=== PATIENT | female | born 1935 | race Caucasian/White ===

== ENCOUNTER 2016-10-28 09:53 | Emergency (ER) | payer OTHER ==
[~2016-10-28] VITALS: Ht 160 cm; Wt 62.1 kg
[~2016-10-28 09:53] MED LIST: BACTRIM,SEPT1 TABLET PO; COLACE100 MG PO; DOCUSATE SODIU100 MG PO; HYDROCODON-ACE1 EAC7 PO; LEVEMIR FL100 UNIT/1 SC; LINEZOLID600 MG PO; LO-DOSE ASPIRIN81 M2 PO; LOSARTAN POTASS25 MG PO; LOVENOX30 MG/0.3 SC; METFORMIN HCL500 MG PO; MYLICON,MYLANTA80 MG PO; NOVOLOG PE100 UNITS/ SC; THERAGRAN1 TABLET PO; TYLENOL REGULA325 MG PO; VANCOMYCIN HCL1 GM IV; WELCHOL625 MG PO
[2016-10-28 11:58] VITALS: BP 150/56
== END 2016-10-28 12:14 | disposition home or self-care (01) ==
LOC: EME 09:53
DX: S00.03XA Contusion of scalp, initial encounter (principal); S30.0XXA Contusion of lower back and pelvis, initial encounter; S60.012A Contusion of left thumb without damage to nail, initial encounter; W01.0XXA Fall on same level from slipping, tripping and stumbling without subsequent striking against object, initial encounter; M16.0 Bilateral primary osteoarthritis of hip; M51.36 Other intervertebral disc degeneration, lumbar region; M79.605 Pain in left leg; I10 Essential (primary) hypertension; Z95.5 Presence of coronary angioplasty implant and graft; Z79.82 Long term (current) use of aspirin; Z87.891 Personal history of nicotine dependence
CPT/HCPCS: 70450; 72100; 73140; 73502; 99281; 99283

== ENCOUNTER 2017-04-20 04:34 | Inpatient (IN) | payer OTHER ==
[2017-04-20] VITALS (7 sets, daily range): BP systolic 101–148; BP diastolic 56–87
[~2017-04-20] VITALS: Ht 154.9 cm; Wt 68.3 kg
[2017-04-20 06:05] LABS: HEMATOCRIT 23.2 % (36.0-46.0); HEMOGLOBIN 7.6 G/DL (11.9-15.5); MCH 28.7 PG (29.0-34.0); MCHC 32.8 G/DL (30.0-36.0); MCV 87.5 FL (83-99); PLATELET COUNT 130 K/uL (156-360); RBC DIS.WIDTH-CV 15.6 % (11.8-14.6); RBC DIS.WIDTH-SD 49.2 % (39-53); RED BLOOD COUNT 2.65 M/uL (3.80-5.20); WHITE BLOOD COUNT 4.9 K/uL (4.1-10.2)
[2017-04-20 06:26] LABS: CHLORIDE 106 MEQ/L (99-109); POTASSIUM 4.4 MEQ/L (3.7-5.4); SODIUM 134 MEQ/L (136-147)
[2017-04-20 06:45] LABS: CREATININE 1.1 MG/DL (0.6-1.3); GFR ESTIMATE (CALCULATED) 51 mL/min/; GLUCOSE 142 mg/dL (70-99); UREA NITROGEN (BUN) 9 mg/dL (9-23)
[2017-04-20 06:51] LABS: ALBUMIN 2.6 G/DL (3.2-4.8); DIRECT BILIRUBIN 0.1 mg/dL (0.0-0.3); TOTAL BILIRUBIN 0.7 MG/DL (0.0-1.0)
[2017-04-20 06:57] LABS: ALKALINE PHOSPHATASE 64 IU/L (3-129); ALT (GPT) 12 IU/L (3-49); AST (GOT) 32 IU/L (2-34); LIPASE 55 U/L (1.0-51.0); TOTAL PROTEIN 5.6 G/DL (6.4-8.3)
[2017-04-20] MEDS ORDERED: METFORMIN HCL500 M1 PO (08:55)
[2017-04-20] MEDS ORDERED: ADVIL PM1 TABLET PO (08:55)
[2017-04-20] MEDS ORDERED: ACETAMINOPHEN325 M1 PO (08:56)
[2017-04-20] MEDS ORDERED: FLONASE ALLERG9.9 ML BOTH NARES (08:58)
[2017-04-20 09:33] LABS: INTER. NORMALIZED RATIO 1.1
[2017-04-20 11:27] LABS: APPEARANCE CLEAR ((CLEAR)); BILIRUBIN NEGATIVE; BLOOD NEGATIVE; COLOR YELLOW ((YELLOW)); GLUCOSE (STRIP) NEGATIVE; KETONES NEGATIVE; LEUKOCYTES SMALL; NITRITE NEGATIVE; PROTEIN (STRIP) NEGATIVE; SPECIFIC GRAVITY 1.014 (1.000-1.030); UROBILINOGEN 0.2 MG/DL (0.2-1.0)
[2017-04-20 11:35] LABS: BACTERIA NONE SEEN /HPF; EPITHELIAL CELLS RARE /HPF; HYALINE CASTS 0-5 /LPF; MUCUS TRACE /LPF; UCUL ADDED? YES
[2017-04-20 11:40] LABS: ABSOLUTE RETICULOCYTE CT. 0.1 M/uL (0.02-0.08); IMM.RETIC FRACTION 17.5 % (3-19); RETIC HGB EQUIVALENT 29.9 (28-36); RETICULOCYTE COUNT 2.2 % (0.5-1.8)
[2017-04-20 11:59] LABS: TROP-I INTERPRETATION NEGATIVE; TROPONIN-I < 0.01 ng/mL (0.0-0.30)
[2017-04-20 12:09] LABS: IRON 21 MCG/DL (35-150)
[2017-04-20 12:20] LABS: FERRITIN 12 NG/ML (10-291)
[2017-04-20 15:53] LABS: HEMATOCRIT 27.6 % (36.0-46.0); HEMOGLOBIN 8.8 G/DL (11.9-15.5)
[2017-04-21] VITALS (7 sets, daily range): BP systolic 88–155; BP diastolic 45–76
[2017-04-21 05:57] LABS: HEMATOCRIT 26.8 % (36.0-46.0); HEMOGLOBIN 8.6 G/DL (11.9-15.5); MCH 28.8 PG (29.0-34.0); MCHC 32.1 G/DL (30.0-36.0); MCV 89.6 FL (83-99); PLATELET COUNT 133 K/uL (156-360); RBC DIS.WIDTH-CV 15.8 % (11.8-14.6); RBC DIS.WIDTH-SD 51.3 % (39-53); RED BLOOD COUNT 2.99 M/uL (3.80-5.20); WHITE BLOOD COUNT 7.1 K/uL (4.1-10.2)
[2017-04-21 08:27] LABS: IMMUNOGLOBULIN G 978 MG/DL (650-1600); IMMUNOGLOBULIN M 456 MG/DL (50-300)
[2017-04-21 09:29] LABS: A/G RATIO 0.9 (1.1-1.8); ALBUMIN 2.8 G/DL (3.4-5.0); CHLORIDE 103 MEQ/L (99-109); CREATININE 1.3 MG/DL (0.6-1.3); GFR ESTIMATE (CALCULATED) 42 mL/min/; GLUCOSE 166 mg/dL (70-99); IRON 112 MCG/DL (35-150); LACTATE DEHYDROGENASE 186 IU/L (20-246); POTASSIUM 4.6 MEQ/L (3.7-5.4); SODIUM 133 MEQ/L (136-147); THYROTROPIN (TSH) 5.5 MIU/L (0.4-5.5); TOTAL PROTEIN 5.8 G/DL (6.4-8.2); TRANSFERRIN (TIBC) 201.1 mg/dL (215-380); TRANSFERRIN SATUR. 56 % (20-55); UREA NITROGEN (BUN) 11 mg/dL (9-23)
[2017-04-21 16:57] LABS: HEMATOCRIT 27.7 % (36.0-46.0); HEMOGLOBIN 8.8 G/DL (11.9-15.5); MCV 90.2 FL (83-99)
[2017-04-22] VITALS (9 sets, daily range): BP systolic 104–136; BP diastolic 50–76
[2017-04-22 05:53] LABS: HEMATOCRIT 22.9 % (36.0-46.0); HEMOGLOBIN 7.4 G/DL (11.9-15.5); MCH 29.1 PG (29.0-34.0); MCHC 32.3 G/DL (30.0-36.0); MCV 90.2 FL (83-99); PLATELET COUNT 125 K/uL (156-360); RBC DIS.WIDTH-CV 15.9 % (11.8-14.6); RBC DIS.WIDTH-SD 51.6 % (39-53); RED BLOOD COUNT 2.54 M/uL (3.80-5.20)
[2017-04-22 06:19] LABS: CHLORIDE 106 MEQ/L (99-109); CREATININE 1.4 MG/DL (0.6-1.3); GFR ESTIMATE (CALCULATED) 38 mL/min/; GLUCOSE 149 mg/dL (70-99); POTASSIUM 4.4 MEQ/L (3.7-5.4); SODIUM 132 MEQ/L (136-147); UREA NITROGEN (BUN) 16 mg/dL (9-23)
[2017-04-22 14:48] LABS: ALBUMIN 2.79 G/DL (3.6-4.9); ALPHA-1 GLOBULIN 0.27 G/DL (0.15-0.40); BETA-GLOBULIN 1.17 G/DL (0.65-1.15); GAMMA-GLOBULIN 1.07 G/DL (0.60-1.35)
[2017-04-22 15:11] LABS: HEMATOCRIT 28.8 % (36.0-46.0); MCV 88.6 FL (83-99)
[2017-04-23 00:14] VITALS: BP 157/60
[2017-04-23 02:41] VITALS: BP 138/60
[2017-04-23 05:23] LABS: HEMATOCRIT 27.4 % (36.0-46.0); HEMOGLOBIN 8.7 G/DL (11.9-15.5); MCH 28.2 PG (29.0-34.0); MCHC 31.8 G/DL (30.0-36.0); MCV 88.7 FL (83-99); PLATELET COUNT 141 K/uL (156-360); RBC DIS.WIDTH-SD 54.6 % (39-53); WHITE BLOOD COUNT 5.9 K/uL (4.1-10.2)
[2017-04-23 05:24] LABS: RED BLOOD COUNT 3.09 M/uL (3.80-5.20)
[2017-04-23 05:45] LABS: CHLORIDE 108 MEQ/L (99-109); CREATININE 1.1 MG/DL (0.6-1.3); GFR ESTIMATE (CALCULATED) 51 mL/min/; GLUCOSE 145 mg/dL (70-99); POTASSIUM 3.9 MEQ/L (3.7-5.4); SODIUM 135 MEQ/L (136-147); UREA NITROGEN (BUN) 16 mg/dL (9-23)
[2017-04-23 07:50] VITALS: BP 134/60
[2017-04-23 16:20] VITALS: BP 134/64
[2017-04-23 19:54] VITALS: BP 141/63
[2017-04-24 00:16] VITALS: BP 131/61
[2017-04-24 03:57] VITALS: BP 133/56
[2017-04-24 08:03] VITALS: BP 133/60
[2017-04-24 11:21] VITALS: BP 139/63
[2017-04-24] MEDS ORDERED: PROTONIX40 MG PO (12:36)
[2017-04-24] MEDS ORDERED: ENDOCET 5-3251 EACH PO (12:43)
== END 2017-04-24 16:50 | DRG 563 ==
LOC: EME → EDBD 04:34 → EME 04:34 → 3EAST 09:06 → EDOF 09:06 → ENRESERV 09:07 → 3EAST 10:09
PROVIDERS: Emergency Medicine; Family Medicine; Internal Medicine; Internal Medicine Gastroenterology; Physician Assistant
PROC: 30233N1 Transfusion of Nonautologous Red Blood Cells into Peripheral Vein, Percutaneous Approach (ICD-10-PCS; principal; 2017-04-20)
PROC: 0DB68ZX Excision of Stomach, Via Natural or Artificial Opening Endoscopic, Diagnostic (ICD-10-PCS; 2017-04-22)
DX: S42.212A Unspecified displaced fracture of surgical neck of left humerus, initial encounter for closed fracture (principal); D62 Acute posthemorrhagic anemia; W06.XXXA Fall from bed, initial encounter; D47.2 Monoclonal gammopathy; K25.3 Acute gastric ulcer without hemorrhage or perforation; Y92.003 Bedroom of unspecified non-institutional (private) residence as the place of occurrence of the external cause; I25.10 Atherosclerotic heart disease of native coronary artery without angina pectoris; D69.6 Thrombocytopenia, unspecified; E78.5 Hyperlipidemia, unspecified; I10 Essential (primary) hypertension; I25.2 Old myocardial infarction; E11.9 Type 2 diabetes mellitus without complications; K29.80 Duodenitis without bleeding; K26.9 Duodenal ulcer, unspecified as acute or chronic, without hemorrhage or perforation; Z95.5 Presence of coronary angioplasty implant and graft; Z79.82 Long term (current) use of aspirin; Z79.84 Long term (current) use of oral hypoglycemic drugs; Z79.899 Other long term (current) drug therapy; Z87.891 Personal history of nicotine dependence; Z66 Do not resuscitate
CPT/HCPCS: 71045; 73030; 73200; 80048; 80076; 81003; 82525 90; 82607; 82728; 82746; 82784; 82948; 83540; 83615; 83615 90; 83625 90; 83690; 83880; 83883 90; 84165; 84443; 84466; 84484; 84630 90; 85014; 85018; 85027; 85046; 85610; 85730; 86334; 86850; 86900; 86901; 86920; 87086; 88305; 88342 TC; 93005; 94799; 99281; 99285; C9113; J1815; J2270; J2405; J3010; J7030; P9016

== ENCOUNTER 2017-04-26 15:26 | Inpatient (IN) | payer OTHER ==
[~2017-04-26] VITALS: Ht 154.9 cm; Wt 69.5 kg
[~2017-04-26 15:26] MED LIST changes: +ACETAMINOPHEN325 M1 PO; +ADVIL PM1 TABLET PO; +ENDOCET 5-3251 EACH PO; +FLONASE ALLERG9.9 ML BOTH NARES; +METFORMIN HCL500 M1 PO; +PROTONIX40 MG PO
[2017-04-26 17:46] LABS: BASOPHIL (%) 0.9 % (0-1); BASOPHIL COUNT 0.1 K/uL (0-0.1); EOSINOPHIL (%) 1.6 % (0-5); EOSINOPHIL COUNT 0.1 K/uL (0-0.3); HEMATOCRIT 31.8 % (36.0-46.0); HEMOGLOBIN 10.2 G/DL (11.9-15.5); IMMATURE GRANULOCYTE (%) 0.4 % (0.0-0.7); LYMPHOCYTE (%) 20.4 % (15-42); LYMPHOCYTE COUNT 1.4 K/uL (1.0-2.8); MCH 28.2 PG (29.0-34.0); MCHC 32.1 G/DL (30.0-36.0); MCV 87.8 FL (83-99); MONOCYTE (%) 7.2 % (3-12); MONOCYTE COUNT 0.5 K/uL (0-0.8); NEUTROPHIL (%) 69.5 % (45-76); NEUTROPHIL COUNT 4.7 K/uL (1.8-6.4); PLATELET COUNT 202 K/uL (156-360); RBC DIS.WIDTH-CV 17.2 % (11.8-14.6); RBC DIS.WIDTH-SD 54.2 % (39-53); RED BLOOD COUNT 3.62 M/uL (3.80-5.20); WHITE BLOOD COUNT 6.8 K/uL (4.1-10.2)
[2017-04-26 17:54] LABS: ALBUMIN 2.6 g/dL (3.2-4.8)
[2017-04-26 17:55] LABS: CHLORIDE 105 mEq/L (99-109); POTASSIUM 4.1 mEq/L (3.7-5.4); SODIUM 132 mEq/L (136-147)
[2017-04-26 17:57] LABS: GLUCOSE 147 mg/dL (70-99); TOTAL PROTEIN 5.6 g/dL (6.4-8.3)
[2017-04-26 17:59] LABS: TOTAL BILIRUBIN 1.3 mg/dL (0.0-1.0)
[2017-04-26 18:00] LABS: ALKALINE PHOSPHATASE 71 IU/L (3-129)
[2017-04-26 18:01] LABS: CREATININE 1.1 mg/dL (0.6-1.3); GFR ESTIMATE (CALCULATED) 51 mL/min/
[2017-04-26 18:02] LABS: AST (GOT) 26 IU/L (2-34); UREA NITROGEN (BUN) 19 mg/dL (9-23)
[2017-04-26 18:03] LABS: ALT (GPT) 11 IU/L (3-49)
[2017-04-26 18:04] LABS: LIPASE 55 U/L (1.0-51.0)
[2017-04-26] MEDS ORDERED: THERAGRAN-M PR1 EAC1 PO (22:33)
[2017-04-26] MEDS ORDERED: OMEPRAZOLE40 M1 PO (22:36)
[2017-04-26] MEDS ORDERED: VALTREX50 MG/ML PO (22:42)
[2017-04-26] MEDS ORDERED: BISACODYL SUPP10 MG PR (22:44)
[2017-04-26] MEDS ORDERED: FLUTICASONE PRO16 GM BOTH NARES (22:45)
[2017-04-26] MEDS ORDERED: MILK OF MAGN PO (22:46)
[2017-04-26] MEDS ORDERED: MIRALAX17 GM PO (22:48)
[2017-04-26 23:51] LABS: APPEARANCE CLEAR ((CLEAR)); BILIRUBIN NEGATIVE; BLOOD NEGATIVE; COLOR YELLOW ((YELLOW)); GLUCOSE (STRIP) NEGATIVE; KETONES 5; LEUKOCYTES NEGATIVE; NITRITE NEGATIVE; PROTEIN (STRIP) NEGATIVE; UCUL ADDED? NO; UROBILINOGEN 0.2 MG/DL (0.2-1.0)
[2017-04-27 04:10] VITALS: BP 134/60
[2017-04-27 07:34] LABS: BASOPHIL (%) 0.6 % (0-1); BASOPHIL COUNT 0.1 K/uL (0-0.1); EOSINOPHIL (%) 1.8 % (0-5); EOSINOPHIL COUNT 0.2 K/uL (0-0.3); HEMATOCRIT 32.6 % (36.0-46.0); HEMOGLOBIN 10.3 G/DL (11.9-15.5); IMMATURE GRANULOCYTE (%) 0.4 % (0.0-0.7); LYMPHOCYTE (%) 14.7 % (15-42); LYMPHOCYTE COUNT 1.5 K/uL (1.0-2.8); MCH 27.8 PG (29.0-34.0); MCHC 31.6 G/DL (30.0-36.0); MCV 87.9 FL (83-99); MONOCYTE (%) 6.4 % (3-12); MONOCYTE COUNT 0.7 K/uL (0-0.8); NEUTROPHIL (%) 76.1 % (45-76); NEUTROPHIL COUNT 7.8 K/uL (1.8-6.4); PLATELET COUNT 227 K/uL (156-360); RBC DIS.WIDTH-CV 17.3 % (11.8-14.6); RBC DIS.WIDTH-SD 53.9 % (39-53); RED BLOOD COUNT 3.71 M/uL (3.80-5.20); WHITE BLOOD COUNT 10.3 K/uL (4.1-10.2)
[2017-04-27 07:50] VITALS: BP 130/60
[2017-04-27 08:03] LABS: ALBUMIN 2.6 G/DL (3.2-4.8); ALKALINE PHOSPHATASE 60 IU/L (3-129); ALT (GPT) 10 IU/L (3-49); AST (GOT) 25 IU/L (2-34); CHLORIDE 102 MEQ/L (99-109); GFR ESTIMATE (CALCULATED) 56 mL/min/; GLUCOSE 134 mg/dL (70-99); SODIUM 132 MEQ/L (136-147); TOTAL BILIRUBIN 1.2 MG/DL (0.0-1.0); UREA NITROGEN (BUN) 18 mg/dL (9-23)
[2017-04-27 12:35] VITALS: BP 127/62
[2017-04-27 16:50] VITALS: BP 133/58
[2017-04-27 20:49] VITALS: BP 109/70
[2017-04-28 00:35] VITALS: BP 105/70
[2017-04-28 03:53] VITALS: BP 110/70
[2017-04-28 07:02] LABS: HEMATOCRIT 28.6 % (36.0-46.0); HEMOGLOBIN 9.2 G/DL (11.9-15.5); MCH 27.9 PG (29.0-34.0); MCHC 32.2 G/DL (30.0-36.0); MCV 86.7 FL (83-99); PLATELET COUNT 214 K/uL (156-360); RBC DIS.WIDTH-CV 17.3 % (11.8-14.6); RBC DIS.WIDTH-SD 53.2 % (39-53); WHITE BLOOD COUNT 5.8 K/uL (4.1-10.2)
[2017-04-28 07:17] VITALS: BP 132/66
[2017-04-28 08:07] LABS: ALBUMIN 2.3 G/DL (3.2-4.8); CHLORIDE 107 MEQ/L (99-109); CREATININE 0.9 MG/DL (0.6-1.3); GFR ESTIMATE (CALCULATED) > 59 mL/min/; GLUCOSE 116 mg/dL (70-99); PHOSPHORUS 2.7 mg/dL (2.5-4.9); POTASSIUM 3.7 MEQ/L (3.7-5.4); SODIUM 136 MEQ/L (136-147); UREA NITROGEN (BUN) 17 mg/dL (9-23)
[2017-04-28 16:07] VITALS: BP 130/70
[2017-04-28 20:00] VITALS: BP 137/65
[2017-04-28 23:38] VITALS: BP 133/60
[2017-04-29 03:41] VITALS: BP 142/62
[2017-04-29 07:07] LABS: CREATININE 0.9 MG/DL (0.6-1.3); GFR ESTIMATE (CALCULATED) > 59 mL/min/; UREA NITROGEN (BUN) 14 mg/dL (9-23)
[2017-04-29 07:50] VITALS: BP 149/67
[2017-04-29 15:20] VITALS: BP 147/64
[2017-04-29 23:40] VITALS: BP 145/60
[2017-04-30 03:34] VITALS: BP 133/63
[2017-04-30 05:15] LABS: C DIFF TOXIN POSITIVE (NEGATIVE)
[2017-04-30 07:15] LABS: BASOPHIL (%) 0.4 % (0-1); EOSINOPHIL (%) 0 % (0-5); HEMATOCRIT 29.9 % (36.0-46.0); HEMOGLOBIN 9.7 G/DL (11.9-15.5); IMMATURE GRANULOCYTE (%) 0.6 % (0.0-0.7); LYMPHOCYTE (%) 9.7 % (15-42); LYMPHOCYTE COUNT 0.8 K/uL (1.0-2.8); MCH 28.3 PG (29.0-34.0); MCHC 32.4 G/DL (30.0-36.0); MCV 87.2 FL (83-99); MONOCYTE (%) 9.7 % (3-12); MONOCYTE COUNT 0.8 K/uL (0-0.8); NEUTROPHIL (%) 79.6 % (45-76); NEUTROPHIL COUNT 6.4 K/uL (1.8-6.4); PLATELET COUNT 209 K/uL (156-360); RBC DIS.WIDTH-CV 17.9 % (11.8-14.6); RBC DIS.WIDTH-SD 55.9 % (39-53); RED BLOOD COUNT 3.43 M/uL (3.80-5.20); WHITE BLOOD COUNT 8.1 K/uL (4.1-10.2)
[2017-04-30 08:00] VITALS: BP 148/70
[2017-04-30 08:07] LABS: ALBUMIN 2.5 G/DL (3.2-4.8); ALKALINE PHOSPHATASE 70 IU/L (3-129); ALT (GPT) 12 IU/L (3-49); AST (GOT) 29 IU/L (2-34); CHLORIDE 109 MEQ/L (99-109); CREATININE 1.1 MG/DL (0.6-1.3); DIRECT BILIRUBIN 0.4 mg/dL (0.0-0.3); GFR ESTIMATE (CALCULATED) 51 mL/min/; SODIUM 138 MEQ/L (136-147); TOTAL BILIRUBIN 1.1 MG/DL (0.0-1.0); TOTAL PROTEIN 5.2 G/DL (6.4-8.3); UREA NITROGEN (BUN) 14 mg/dL (9-23)
[2017-04-30 08:08] LABS: GLUCOSE 216 mg/dL (70-99); POTASSIUM 2.7 MEQ/L (3.7-5.4)
[2017-04-30 11:15] VITALS: BP 150/78
[2017-04-30 16:32] LABS: CHLORIDE 110 MEQ/L (99-109); CREATININE 1.1 MG/DL (0.6-1.3); GFR ESTIMATE (CALCULATED) 51 mL/min/; GLUCOSE 215 mg/dL (70-99); POTASSIUM 3.2 MEQ/L (3.7-5.4); SODIUM 135 MEQ/L (136-147); UREA NITROGEN (BUN) 15 mg/dL (9-23)
[2017-04-30 16:47] VITALS: BP 136/68
[2017-04-30 20:22] VITALS: BP 137/64
[2017-05-01 00:36] VITALS: BP 141/63
[2017-05-01 04:20] VITALS: BP 140/62
[2017-05-01 07:03] LABS: CHLORIDE 116 MEQ/L (99-109); CREATININE 1.1 MG/DL (0.6-1.3); GFR ESTIMATE (CALCULATED) 51 mL/min/; GLUCOSE 174 mg/dL (70-99); MAGNESIUM 1.9 mg/dl (1.3-2.7); PHOSPHORUS 2.2 mg/dL (2.5-4.9); POTASSIUM 3.2 MEQ/L (3.7-5.4); SODIUM 140 MEQ/L (136-147); UREA NITROGEN (BUN) 18 mg/dL (9-23)
[2017-05-01 11:33] VITALS: BP 142/64
[2017-05-01 19:40] VITALS: BP 139/72
[2017-05-01 23:05] VITALS: BP 122/79
[2017-05-02 03:00] VITALS: BP 125/78
[2017-05-02 07:25] VITALS: BP 140/76
[2017-05-02 11:35] VITALS: BP 112/62
[2017-05-02 13:55] LABS: CHLORIDE 111 MEQ/L (99-109); CREATININE 1.3 MG/DL (0.6-1.3); GFR ESTIMATE (CALCULATED) 42 mL/min/; GLUCOSE 213 mg/dL (70-99); POTASSIUM 3.3 MEQ/L (3.7-5.4); SODIUM 136 MEQ/L (136-147); UREA NITROGEN (BUN) 20 mg/dL (9-23)
[2017-05-02 15:41] VITALS: BP 108/62
[2017-05-02 21:22] VITALS: BP 102/58
[2017-05-03 00:21] VITALS: BP 119/58
[2017-05-03 04:14] VITALS: BP 110/58
[2017-05-03 07:24] VITALS: BP 96/46
[2017-05-03 07:32] LABS: CHLORIDE 112 MEQ/L (99-109); CREATININE 1.6 MG/DL (0.6-1.3); GFR ESTIMATE (CALCULATED) 33 mL/min/; GLUCOSE 106 mg/dL (70-99); POTASSIUM 3.5 MEQ/L (3.7-5.4); SODIUM 137 MEQ/L (136-147); UREA NITROGEN (BUN) 24 mg/dL (9-23)
[2017-05-03 08:21] LABS: MAGNESIUM 1.7 mg/dl (1.3-2.7)
[2017-05-03 11:15] VITALS: BP 88/43
[2017-05-03 16:26] VITALS: BP 110/70
[2017-05-04 00:34] VITALS: BP 94/49
[2017-05-04 07:08] LABS: HEMATOCRIT 27.5 % (36.0-46.0); HEMOGLOBIN 8.7 G/DL (11.9-15.5); MCH 27.6 PG (29.0-34.0); MCHC 31.6 G/DL (30.0-36.0); MCV 87.3 FL (83-99); RBC DIS.WIDTH-SD 59.5 % (39-53); RED BLOOD COUNT 3.15 M/uL (3.80-5.20); WHITE BLOOD COUNT 11.9 K/uL (4.1-10.2)
[2017-05-04 07:26] LABS: PLAT.SUFFICIENCY ADEQUATE
[2017-05-04 07:41] LABS: CHLORIDE 109 MEQ/L (99-109); CREATININE 1.7 MG/DL (0.6-1.3); GFR ESTIMATE (CALCULATED) 31 mL/min/; GLUCOSE 139 mg/dL (70-99); MAGNESIUM 1.8 mg/dl (1.3-2.7); POTASSIUM 3.7 MEQ/L (3.7-5.4); SODIUM 132 MEQ/L (136-147); UREA NITROGEN (BUN) 29 mg/dL (9-23)
[2017-05-04 08:00] VITALS: BP 120/80
[2017-05-04 08:00] LABS: PLATELET COUNT 144 K/uL (156-360)
[2017-05-04 14:10] LABS: APPEARANCE CLOUDY ((CLEAR)); BILIRUBIN NEGATIVE; BLOOD LARGE; COLOR YELLOW ((YELLOW)); GLUCOSE (STRIP) NEGATIVE; KETONES NEGATIVE; LEUKOCYTES LARGE; NITRITE NEGATIVE; PROTEIN (STRIP) NEGATIVE; SPECIFIC GRAVITY 1.009 (1.000-1.030); UROBILINOGEN 0.2 MG/DL (0.2-1.0)
[2017-05-04 14:34] LABS: UR CREATININE CONCENTRATION 60.8 MG/DL
[2017-05-04 14:42] LABS: EPITHELIAL CELLS 1+ /HPF; HYALINE CASTS 0-5 /LPF; MUCUS 1+ /LPF; RED BLOOD CELLS 30-40 /HPF (0-5)
[2017-05-04 14:44] LABS: COARSE GRANULAR CASTS 0-5 /LPF
[2017-05-04 14:45] LABS: BACTERIA 4+ /HPF; WHITE BLOOD CELLS 40-50 /HPF (0-5)
[2017-05-04 16:22] VITALS: BP 112/58
[2017-05-04 23:24] VITALS: BP 122/72
[2017-05-05 08:14] LABS: ALBUMIN 1.7 G/DL (3.2-4.8); CHLORIDE 110 MEQ/L (99-109); GFR ESTIMATE (CALCULATED) 25 mL/min/; GLUCOSE 61 mg/dL (70-99); IRON 17 MCG/DL (35-150); MAGNESIUM 1.8 mg/dl (1.3-2.7); PHOSPHORUS 2.3 mg/dL (2.5-4.9); POTASSIUM 4.5 MEQ/L (3.7-5.4); SODIUM 134 MEQ/L (136-147); TRANSFERRIN (TIBC) 109.9 mg/dL (215-380); TRANSFERRIN SATUR. 15 % (20-55); UREA NITROGEN (BUN) 33 mg/dL (9-23)
[2017-05-05 08:55] LABS: THYROTROPIN (TSH) 2.7 MIU/L (0.4-5.5)
[2017-05-05 10:43] LABS: BASE EXCESS -12.3 mEq/L (-3 to +3); BICARBONATE 11.9 mEq/L (22-26); CARBOXY HGB 2.2 % (0-5); COMMENTS - BLOOD GASES +C; FI02 21 %; METHEMOGLOBIN 1.5 % (0-1.5); PCO2 22 mm Hg (35-45); PO2 68 mm Hg (80-100); SITE RR +A; TOTAL RESP RATE 20 resp/min; pH 7.34 (7.35-7.45)
[2017-05-05 11:51] VITALS: BP 78/40
[2017-05-05 12:45] VITALS: BP 82/48
[2017-05-05 13:15] VITALS: BP 90/46
[2017-05-05 17:03] VITALS: BP 91/30
[2017-05-05 19:20] VITALS: BP 100/48
[2017-05-05 23:33] VITALS: BP 104/41
[2017-05-06 04:53] VITALS: BP 95/54
[2017-05-06 05:37] LABS: HEMATOCRIT 25.2 % (36.0-46.0); HEMOGLOBIN 8.4 G/DL (11.9-15.5); MCH 28.1 PG (29.0-34.0); MCHC 33.3 G/DL (30.0-36.0); MCV 84.3 FL (83-99); PLATELET COUNT 128 K/uL (156-360); RBC DIS.WIDTH-CV 19.1 % (11.8-14.6); RED BLOOD COUNT 2.99 M/uL (3.80-5.20); WHITE BLOOD COUNT 15.1 K/uL (4.1-10.2)
[2017-05-06 05:58] LABS: ALBUMIN 1.9 G/DL (3.2-4.8); ALKALINE PHOSPHATASE 107 IU/L (3-129); ALT (GPT) 12 IU/L (3-49); AST (GOT) 27 IU/L (2-34); CHLORIDE 109 MEQ/L (99-109); GFR ESTIMATE (CALCULATED) 25 mL/min/; GLUCOSE 129 mg/dL (70-99); MAGNESIUM 1.8 mg/dl (1.3-2.7); PHOSPHORUS 2.2 mg/dL (2.5-4.9); POTASSIUM 3.8 MEQ/L (3.7-5.4); SODIUM 136 MEQ/L (136-147); TOTAL BILIRUBIN 2.5 MG/DL (0.0-1.0); TOTAL PROTEIN 4.9 G/DL (6.4-8.3); UREA NITROGEN (BUN) 34 mg/dL (9-23)
[2017-05-06 06:11] LABS: ABS NEUTROPHIL COUNT 13.1; ANISOCYTOSIS 2+; BAND NEUTROPHILS 7.8 % (0-8.0); BASOPHILS 0.9 %; BURR CELLS 2+; EOSINOPHIL ABS CT 0.1; EOSINOPHILS 0.9 % (0-5.0); LYMPHOCYTES 6.1 % (15.0-45.0); MACROCYTES 2+; MONOCYTES 5.2 % (0-9.0); OVALOCYTES 1+; PLAT.SUFFICIENCY DECREASED; POIKILOCYTOSIS 3+; SEG.NEUTROPHILS 79.1 % (46.0-76.0)
[2017-05-06 08:30] VITALS: BP 124/43
[2017-05-06 11:30] VITALS: BP 111/58
[2017-05-06 16:25] VITALS: BP 97/54
[2017-05-06 19:40] VITALS: BP 99/47
[2017-05-06 23:55] VITALS: BP 146/54
[2017-05-07 02:43] VITALS: BP 105/62
[2017-05-07 06:58] LABS: HEMATOCRIT 25.5 % (36.0-46.0); HEMOGLOBIN 8.6 G/DL (11.9-15.5); MCH 28.3 PG (29.0-34.0); MCHC 33.7 G/DL (30.0-36.0); MCV 83.9 FL (83-99); NRBC (%) 2.5 /100 WBC (0-0); PLATELET COUNT 124 K/uL (156-360); RBC DIS.WIDTH-CV 19.2 % (11.8-14.6); RBC DIS.WIDTH-SD 56.1 % (39-53); RED BLOOD COUNT 3.04 M/uL (3.80-5.20); WHITE BLOOD COUNT 14.3 K/uL (4.1-10.2)
[2017-05-07 07:29] LABS: ALBUMIN 1.6 G/DL (3.2-4.8); ALT (GPT) 11 IU/L (3-49); AST (GOT) 26 IU/L (2-34); CHLORIDE 111 MEQ/L (99-109); GFR ESTIMATE (CALCULATED) 25 mL/min/; GLUCOSE 105 mg/dL (70-99); PHOSPHORUS 2.3 mg/dL (2.5-4.9); POTASSIUM 3.7 MEQ/L (3.7-5.4); SODIUM 138 MEQ/L (136-147); TOTAL BILIRUBIN 2.8 MG/DL (0.0-1.0); TOTAL PROTEIN 4.7 G/DL (6.4-8.3); UREA NITROGEN (BUN) 37 mg/dL (9-23)
[2017-05-07 07:30] LABS: ALKALINE PHOSPHATASE 143 IU/L (3-129); DIRECT BILIRUBIN 1.7 mg/dL (0.0-0.3)
[2017-05-07 09:00] VITALS: BP 116/55
[2017-05-07 10:29] LABS: VANCOMYCIN, TROUGH 11.4 MCG/ML (10-20)
[2017-05-07 12:38] VITALS: BP 119/60
[2017-05-07 16:04] VITALS: BP 107/49
[2017-05-07 20:15] VITALS: BP 115/46
[2017-05-08 00:26] VITALS: BP 97/51
[2017-05-08 04:00] VITALS: BP 104/44
[2017-05-08 05:46] LABS: HEMATOCRIT 26.4 % (36.0-46.0); HEMOGLOBIN 8.7 G/DL (11.9-15.5); MCH 27.4 PG (29.0-34.0); MCV 83.3 FL (83-99); NRBC (%) 3.5 /100 WBC (0-0); PLATELET COUNT 117 K/uL (156-360); RBC DIS.WIDTH-CV 18.7 % (11.8-14.6); RBC DIS.WIDTH-SD 54.9 % (39-53); RED BLOOD COUNT 3.17 M/uL (3.80-5.20); WHITE BLOOD COUNT 17.6 K/uL (4.1-10.2)
[2017-05-08 06:36] LABS: ALBUMIN 1.7 G/DL (3.2-4.8); ALKALINE PHOSPHATASE 157 IU/L (3-129); ALT (GPT) 11 IU/L (3-49); AST (GOT) 31 IU/L (2-34); CHLORIDE 106 MEQ/L (99-109); CREATININE 2.1 MG/DL (0.6-1.3); DIRECT BILIRUBIN 1.9 mg/dL (0.0-0.3); GFR ESTIMATE (CALCULATED) 24 mL/min/; GLUCOSE 100 mg/dL (70-99); PHOSPHORUS 2.8 mg/dL (2.5-4.9); POTASSIUM 3.7 MEQ/L (3.7-5.4); SODIUM 136 MEQ/L (136-147); TOTAL BILIRUBIN 2.7 MG/DL (0.0-1.0); TOTAL PROTEIN 5.2 G/DL (6.4-8.3); UREA NITROGEN (BUN) 40 mg/dL (9-23)
[2017-05-08 07:10] VITALS: BP 97/50
[2017-05-08 14:23] VITALS: BP 102/53
== END 2017-05-08 16:45 | disposition hospice, home (50) | DRG 871 ==
LOC: EME 15:26 → 2EASTP 22:21 → EDOF 22:21 → ENRESERV 22:24 → 2EASTP 04-27 04:17 → 2EAST 04-30 06:57 → ENRESERV 04-30 06:57 → 2EAST 05-05 12:16 → ENRESERV 05-05 12:18 → 4EAST 05-05 13:03 → ENRESERV 05-05 13:04 → ENPENDDIS 05-08 → 4EAST 05-08 16:45
PROVIDERS: Emergency Medicine; Family Medicine; Hospitalist; Internal Medicine; Internal Medicine Gastroenterology; Internal Medicine Nephrology; Student in an Organized Health Care Education/Training Program; Surgery
PROC: 30233N1 Transfusion of Nonautologous Red Blood Cells into Peripheral Vein, Percutaneous Approach (ICD-10-PCS; principal; 2017-04-30)
PROC: 02HV33Z Insertion of Infusion Device into Superior Vena Cava, Percutaneous Approach (ICD-10-PCS; 2017-05-05)
DX: A41.02 Sepsis due to Methicillin resistant Staphylococcus aureus (principal); G93.40 Encephalopathy, unspecified; N17.9 Acute kidney failure, unspecified; R18.8 Other ascites; N39.0 Urinary tract infection, site not specified; A04.72 Enterocolitis due to Clostridium difficile, not specified as recurrent; B00.2 Herpesviral gingivostomatitis and pharyngotonsillitis; S42.212D Unspecified displaced fracture of surgical neck of left humerus, subsequent encounter for fracture with routine healing; Z66 Do not resuscitate; Z51.5 Encounter for palliative care; E87.2 Acidosis; K56.0 Paralytic ileus; E66.9 Obesity, unspecified; B96.20 Unspecified Escherichia coli [E. coli] as the cause of diseases classified elsewhere; E78.5 Hyperlipidemia, unspecified; E86.0 Dehydration; E87.6 Hypokalemia; I25.10 Atherosclerotic heart disease of native coronary artery without angina pectoris; I44.0 Atrioventricular block, first degree; K74.60 Unspecified cirrhosis of liver; R13.10 Dysphagia, unspecified; D47.2 Monoclonal gammopathy; D64.9 Anemia, unspecified; D69.6 Thrombocytopenia, unspecified; K63.89 Other specified diseases of intestine; K14.3 Hypertrophy of tongue papillae; N76.6 Ulceration of vulva; W06.XXXD Fall from bed, subsequent encounter; N18.9 Chronic kidney disease, unspecified; I12.9 Hypertensive chronic kidney disease with stage 1 through stage 4 chronic kidney disease, or unspecified chronic kidney disease; E11.22 Type 2 diabetes mellitus with diabetic chronic kidney disease; Z68.28 Body mass index [BMI] 28.0-28.9, adult; I25.2 Old myocardial infarction; Z87.11 Personal history of peptic ulcer disease; Z87.891 Personal history of nicotine dependence; Z90.710 Acquired absence of both cervix and uterus; Z95.5 Presence of coronary angioplasty implant and graft; Z79.84 Long term (current) use of oral hypoglycemic drugs; Z80.0 Family history of malignant neoplasm of digestive organs; Z82.0 Family history of epilepsy and other diseases of the nervous system; Z83.3 Family history of diabetes mellitus
CPT/HCPCS: 36600; 70450; 71045; 74018; 74177; 76770; 80048; 80048 91; 80053; 80069; 80076; 80202; 81003; 82565; 82570; 82803; 82948; 83540; 83605; 83690; 83735; 84100; 84156; 84300; 84443; 84466; 84520; 85025; 85027; 87040; 87077; 87086; 87147; 87186; 87493; 87641; 87801; 92610 GN; 93005; 97530 GO; 97530 GP; 99281; 99285; C1751; C1753; C9113; J0696; J1650; J1756; J1815; J1885; J1940; J2270; J2405; J3370; J3480; J7030; J7040; J7042; J7050; J7070; P9047; S0030